=== PATIENT | male | born 1950 | race Caucasian/White ===

== ENCOUNTER → 2024-10-31 10:09 | Outpatient (REF) | payer OTHER, SELFPAY | LOC: RAD 10:09 | PROVIDERS: ATTENDING PHYSICIAN Nurse Practitioner; FAMILY PHYSICIAN Internal Medicine | DX: M25.562 Pain in left knee (principal) | CPT/HCPCS: 73564 ==

== ENCOUNTER → 2024-11-12 08:38 | Outpatient (REF) | payer OTHER, SELFPAY | LOC: RAD 08:38 | PROVIDERS: ATTENDING PHYSICIAN Nurse Practitioner | DX: M79.605 Pain in left leg (principal) | CPT/HCPCS: 93971 ==

== ENCOUNTER 2025-04-13 12:38 | Emergency (ER) | payer OTHER, SELFPAY ==
[2025-04-13] VITALS (17 sets, daily range): BP systolic 135–183; BP diastolic 86–99; BMI 21.6
--- NOTE | 2025-04-13 15:41 | ED.GENMED ---
History of Present Illness
<CLAIRE Mukherjee - Last Filed: 04/13/25 18:20>
General
Chief Complaint: Musculo-Skeletal Complaint
Source: patient
Exam Limitations: none
Time Seen by Provider: 04/13/25 14:43
Nursing documentation reviewed up to this point in time: agreed with
History of Present Illness
History of Present Illness:
Patient is a 74-year-old male who presents to the ER for evaluation of left shoulder injury. Patient reports last night he tripped and fell hitting his left shoulder. He denies hitting his head at the time. Is on blood thinners. He went to
urgent care today was diagnosed with a fracture dislocation. Patient lanes of left shoulder pain no other injuries. He denies any numbness tingling/ to distal extremity.
Pt is left hand dominant.
Past History
<CLAIRE Mukherjee - Last Filed: 04/13/25 18:20>
Past History
ED Past Medical History: None
ED Past Surgical History: Orthopedic and Tonsilectomy
Social History
Tobacco: Non-smoker
Alcohol: None
Drug: None
Personal:
Living: with family
Review of Systems
<CLAIRE Mukherjee - Last Filed: 04/13/25 18:20>
Review of Systems
Allergies reviewed?: Yes
All Other Systems: ROS reviewed and negative except as documented in HPI and ROS
Phy Exam
<CLAIRE Mukherjee - Last Filed: 04/13/25 18:20>
General Physical Exam
General Presentation: no apparent distress
General age: appears stated age
General Skin: warm and dry
General Habitus: normal
General Mental: alert
General Hydration: appears well hydrated
Neurological Exam
Neurological Exam: alert and oriented x3
Musculoskeletal Exam
Musculoskeletal Exam: other (+ deformity to left proximal arm + strong distal pulses and intact sensation no abrasions/lacerations )
Skin Exam
Skin Exam: normal color and warm/dry
Psychiatric Exam
Psychiatric Exam: normal mood/affect
Course
<BERRY MukherjeeNP - Last Filed: 04/13/25 18:20>
Orders/Labs/Results
Orders:
Orders
04/13/25 15:44
Cardiac Monitoring- Treatment ONCE
IV Insert/Care/Rem.- Treatment PRN
04/13/25 15:53
ASA Classification Routine
Propofol [Diprivan] 80 mg IV NOW STA
04/13/25 16:47
CR Shoulder - Left Min 2 View* Stat
Reason For Exam: post reduction
Vital Signs
Initial and Last Documented VS:
Initial Vital Signs
Temp Pulse Resp BP Pulse Ox
98.5 F 87 16 173/90 96
04/13/25 12:45 04/13/25 12:45 04/13/25 12:45 04/13/25 12:45 04/13/25 12:45
Last Documented Vital Signs
Temp Pulse Resp BP Pulse Ox
98.0 F 77 18 164/95 92
04/13/25 17:14 04/13/25 17:30 04/13/25 17:29 04/13/25 17:29 04/13/25 17:30
Drying Machine Tender consulted with Physician
Drying Machine Tender consulted with physician?: Yes (Jaden )
<Jesus Manuel Stanley, - Last Filed: 04/13/25 16:51>
Orders/Labs/Results
Orders:
Orders
04/13/25 15:44
Cardiac Monitoring- Treatment ONCE
IV Insert/Care/Rem.- Treatment PRN
04/13/25 15:53
ASA Classification Routine
Propofol [Diprivan] 80 mg IV NOW STA
04/13/25 16:47
CR Shoulder - Left Min 2 View* Stat
Reason For Exam: post reduction
Vital Signs
Initial and Last Documented VS:
Initial Vital Signs
Temp Pulse Resp BP Pulse Ox
98.5 F 87 16 173/90 96
04/13/25 12:45 04/13/25 12:45 04/13/25 12:45 04/13/25 12:45 04/13/25 12:45
Last Documented Vital Signs
Temp Pulse Resp BP Pulse Ox
98.0 F 77 18 164/95 92
04/13/25 17:14 04/13/25 17:30 04/13/25 17:29 04/13/25 17:29 04/13/25 17:30
Procedures
<CLAIRE Mukherjee - Last Filed: 04/13/25 18:20>
Moderate Sedation
Time drug administered: 16:44
Moderate Sedation Procedure End Time: 17:00
<Jesus Manuel Stanley DO - Last Filed: 04/13/25 16:51>
Moderate Sedation
ASA Risk Score: Class I
Chart and allergies reviewed: Yes
Consent for anesthesia obtained: Yes
Time out completed (validating right patient & procedure): Yes
History of difficult intubation: No
Airway free of obstruction: Yes
Patient has a gag reflex: Yes
Patient is able to open mouth: Yes
Patient has no dentures: Yes
Patient has no loose teeth: Yes
Medication administered by Provider during Moderate Sedation: IV Propofol (mg)
Total dose administered: 80
Joint/Fracture Reduction
Left Shoulder:
Indication for procedure:: left shoulder fracture dislocation
Procedure completed by: Otis
Consent form signed: Yes
Joint reduced: with anesthesia sedation
Anesthesia/sedation: Moderate sedation
Injury was: closed
Further treatement: needs re-check only
Post reduction exam: stable
Capillary Refill: normal
Normal distal neurovascular exam?: Yes
Peripheral Pulses: radial (left): 4+
<CLAIRE Mukherjee - Last Filed: 04/13/25 18:20>
MDM/Problems Addressed
Differential Diagnosis Includes:
Not limited to fracture dislocation
MDM/Problems Addressed:
Patient is a 74-year-old male with fracture dislocation left shoulder. He did this last night. He denies hitting his head no other injuries. He was sent by urgent care. He presents awake alert , in no acute distress ;strong distal pulses
moderate sedation was performed with the ED physician and reduction was successfully done. Patient was monitored here and remained awake alert no acute distress. He feels that his pain will be managed with ibuprofen and Tylenol and is comfortable.
Will DC with outpatient Ortho follow-up
<CLAIRE Mukherjee - Last Filed: 04/13/25 18:20>
*Radiology
Radiology exam reviewed: radiology read reviewed
*Pulse Oximetry
SaO2: 96
Patient hypoxic: no
*Critical Care Note
Total Time (30-74mins, 75-104mins- exclusive of procedures): Not Applicable
ED Attending Note
<CLAIRE Mukherjee - Last Filed: 04/13/25 18:20>
-
Portions of this chart may have been created with voice recognition software.� Occasional wrong word or��sound alike� substitutions may have occurred due to the inherent limitations of voice recognition software.
<Jesus Manuel Stanley DO - Last Filed: 04/13/25 16:51>
ED Attending Note
Patient seen and examined by attending physician: Yes
ED Attending Note:
I have reviewed and agree with history and treatment plan by Lisette Santiago. My exam revealed glenohumeral step-off anterior dislocation left shoulder neurologically and vascularly intact. Patient tolerated sedation and shoulder reduction well.
Will discharge and follow-up with orthopedics.
Discharge Plan
Departure
Patient Disposition: Home (Routine Discharge)
Date of Disposition: 04/13/25
Time of Disposition: 18:06
Patient with high blood pressure during this ER visit?: Yes
Condition: Fair
Covid-19: Not Applicable
Discharge Problem:
Closed fracture of shoulder, Dislocation of shoulder
Instructions: Shoulder Dislocation (DC), How to Use a Shoulder Sling, Shoulder or upper arm fracture, MODERATE SEDATION ADULT
Referrals:
Marco Cardenas MD [Active, Orthopedics]
Elaine Mata MD [Family Provider, Internal Medicine]
Activity Restrictions/Additional Instructions:
As discussed wear sling for support. You may ice the affected area for the next 24 hours 20 minutes at a time several times a day. Call orthopedics tomorrow to make an appointment as soon as possible.
You may take ibuprofen and alternate with Tylenol for pain. Return if any worsening of symptoms.
Interventions
Interventions:
*Risk Screen - Suicide Last Done: 04/13/25 16:30
*General Assessment Last Done: 04/13/25 16:30
*Neglect/Abuse Screening Last Done: 04/13/25 16:30
*ED- Fall Risk Assessment Last Done: 04/13/25 16:30
*ED COVID-19 Vaccine History Last Done: 04/13/25 16:30
ED-Musculoskeletal Assessment Last Done: 04/13/25 14:41
Discharge Date and Time
Print Language: VIETNAMESE
--- NOTE | 2025-04-13 16:00 | EDRN ---
Ladonna Santiago NP in room w/ pt.
--- NOTE | 2025-04-13 16:16 | EDRN ---
in room w/ pt.
[2025-04-13] MEDS: DIPRIVAN 80 MG IV (16:44)
--- NOTE | 2025-04-13 18:32 | EDRN ---
Pt is awaiting discharge transport by [facility] to take him home then he will be with sanna Paz (23 y.o.) at his home.
== END 2025-04-13 18:46 | disposition home or self-care (01) ==
LOC: EMR 12:38
PROVIDERS: EMERGENCY PHYSICIAN Emergency Medicine; FAMILY PHYSICIAN Internal Medicine
DX: S43.005A Unspecified dislocation of left shoulder joint, initial encounter (principal); W01.0XXA Fall on same level from slipping, tripping and stumbling without subsequent striking against object, initial encounter; Z79.01 Long term (current) use of anticoagulants
CPT/HCPCS: 99283; 23650; 96374; 73030

== ENCOUNTER → 2025-04-28 15:47 | Outpatient (REF) | payer OTHER, SELFPAY ==
--- NOTE | 2025-05-11 15:20 | OID.L.PAT ---
Pulmonary Nodule Pat Letter
- -
05/11/25
JAMILA STEPHENS
[address]
[place], [place]
Carmine MARINO,
A pulmonary nodule was seen on an imaging study done by [facility]. This was reviewed by the [facility] Pulmonary Nodule Advisory Board and the following recommendation was made:
Recommendation: Follow up CT Chest - now
If you have any questions, please do not hesitate to contact your primary care physician. If you are in need of a Physician, you can go to [email or web address] and click on 'Find a Provider'. Type 'Family Medicine' in the search.
Oncology Nurse Navigator
[facility]
[phone]
--- NOTE | 2025-05-11 15:22 | OID.L.REC ---
Pulmonary Nodule Follow Up
- Recommendation
05/11/25
Pulmonary Nodule Review Recommendations
Your patient, JAMILA STEPHENS, had a pulmonary nodule seen on an imaging study done on 04/28/2025 in the [facility] Radiology Department.
This was reviewed by the [facility] Pulmonary Nodule Advisory Board and the following recommendation was made:
Recommendation: Follow up CT Chest - now
If you have any questions, please do not hesitate to contact us.
Sincerely,
Oncology Nurse Navigator
[facility]
[phone]
== END ==
LOC: RAD 15:47
PROVIDERS: ATTENDING PHYSICIAN Physician Assistant Surgical; FAMILY PHYSICIAN Internal Medicine
DX: S42.292A Other displaced fracture of upper end of left humerus, initial encounter for closed fracture (principal); M25.512 Pain in left shoulder
CPT/HCPCS: 73200

== ENCOUNTER 2025-05-01 06:09 | Day surgery (SDC) | payer OTHER, SELFPAY ==
[2025-04-28 09:30] LABS: Hematocrit 37.3 % (39.0-52.0); Hemoglobin 12.5 g/dL (13.0-18.0); Mean Corp Hgb Conc. 33.5 g/dL (33.0-37.0); Mean Corpuscular Volume 97.4 fL (80.0-94.0); Nucleated Red Blood Cells % 0 % (-); Platelet Count 336 10^3/uL (130-400); Red Cell Dist. Width 13.7 % (11.5-14.5)
[2025-04-28 10:27] LABS: Blood Urea Nitrogen 8 mg/dl (9-20); Calcium 8.7 mg/dl (8.4-10.2); Carbon Dioxide 26 mmol/L (22-30); Chloride 102 mmol/L (98-107); Glucose 93 mg/dl (70-99); Potassium 4.1 mmol/L (3.5-5.1); Sodium 134 mmol/L (135-145); eGFR > 60.00
[2025-05-01] VITALS (9 sets, daily range): BP systolic 123–149; BP diastolic 75–105; BMI 21.2
[2025-05-01] MEDS: NORMOSOL-R/PLASMALYTE-A 1000 IV (08:01)
[2025-05-01] MEDS: TYLENOL 1000 MG PO (08:03)
[2025-05-01] MEDS: CELEBREX 200 MG PO (08:03)
== END 2025-05-01 15:00 | disposition home or self-care (01) ==
LOC: SDS 06:09
PROVIDERS: ATTENDING PHYSICIAN Specialist; FAMILY PHYSICIAN Internal Medicine
DX: S42.292A Other displaced fracture of upper end of left humerus, initial encounter for closed fracture (principal); X58.XXXA Exposure to other specified factors, initial encounter
CPT/HCPCS: 23615; C1713; 36415; 73030; 76000; 80048; 85025; 93005

== ENCOUNTER 2025-06-12 06:04 | Day surgery (SDC) | payer OTHER, SELFPAY ==
[2025-06-05 11:26] LABS: Hematocrit 36.7 % (39.0-52.0); Hemoglobin 12.2 g/dL (13.0-18.0); Mean Corp Hgb Conc. 33.2 g/dL (33.0-37.0); Mean Corpuscular Volume 97.9 fL (80.0-94.0); Nucleated Red Blood Cells % 0 % (-); Platelet Count 289 10^3/uL (130-400); Red Cell Dist. Width 13.2 % (11.5-14.5)
[2025-06-05 11:44] LABS: Blood Urea Nitrogen 13 mg/dl (9-20); Calcium 8.7 mg/dl (8.4-10.2); Carbon Dioxide 27 mmol/L (22-30); Chloride 103 mmol/L (98-107); Glucose 94 mg/dl (70-99); Potassium 4.7 mmol/L (3.5-5.1); Sodium 134 mmol/L (135-145); eGFR > 60.00
[2025-06-05 13:59] VITALS: BMI 22.5
[2025-06-12] VITALS (8 sets, daily range): BP systolic 134–155; BP diastolic 73–91; BMI 22.5
[2025-06-12] MEDS: CELEBREX 200 MG PO (08:09)
[2025-06-12] MEDS: TYLENOL 1000 MG PO (08:09)
[2025-06-12] MEDS: NORMOSOL-R/PLASMALYTE-A 1000 IV (08:11)
--- NOTE | 2025-06-12 09:15 | W.DS.TRANS ---
DC Summary - Point Of Care Specialist
-
Discharge Instructions:
Sleep Apnea Risk Low
Discharge Diagnosis/Procedures L TSA 06/12/25 Dr. Cardenas
Diet As tolerated
Activity With Walker
Driving Restrictions No driving
Bathing Restrictions OK to Shower
Instructions:
Stand-Alone Forms: SDS Total Shoulder D/C Inst.
Changes to Home Medications: Yes
Discharge Medications:
DC Medications w/original date entered in [employer]
cholecalciferol (vitamin D3) 25 mcg (1,000 unit) tablet (Vitamin D3) 25 mcg PO DAILY 04/28/25
cyanocobalamin (vitamin B-12) 1,000 mcg tablet 1,000 mcg PO DAILY 04/28/25
multivitamin 1 tab PO DAILY 04/28/25
Held on 06/12/25. Instructions: Resume on 06/20/25.
Vegan Calcium 600 mg PO DAILY 06/02/25
Vegan Vitamin C 1,000 mg PO DAILY 06/02/25
acetaminophen 325 mg tablet (Tylenol) 650 mg (2 x 325 mg) PO QID #1 tab 06/12/25
aspirin 325 mg tablet 325 mg PO DAILY blood clot prevention #1 tab 06/12/25
celecoxib 200 mg capsule 200 mg PO DAILY Anti-inflammatory #14 caps 06/12/25
dexamethasone 4 mg tablet 4 mg PO BID inflammation #6 tabs 06/12/25
docusate sodium 100 mg capsule (Colace) 100 mg PO BID stool softner #1 cap 06/12/25
famotidine 20 mg tablet 20 mg PO HS GI prophylaxis #30 tabs 06/12/25
gabapentin 300 mg capsule 300 mg PO HS sleep/pain #10 caps 06/12/25
magnesium hydroxide 400 mg/5 mL oral suspension (Milk of Magnesia) 30 ml PO HS PRN constipation #1 mL 06/12/25
ondansetron 4 mg disintegrating tablet 4 mg PO Q6H PRN n/v #20 tabs 06/12/25
oxycodone 5 mg tablet 5 mg PO Q6H PRN 1 tab moderate pain, 2 tabs severe pain #30 tabs 06/12/25
sennosides 8.6 mg tablet (Senokot) 17.2 mg (2 x 8.6 mg) PO BID laxative #2 tabs 06/12/25
Home Medication Changes
aspirin 325 mg tablet 325 mg PO DAILY blood clot prevention #1 tab 06/12/25
celecoxib 200 mg capsule 200 mg PO DAILY Anti-inflammatory #14 caps 06/12/25
dexamethasone 4 mg tablet 4 mg PO BID inflammation #6 tabs 06/12/25
docusate sodium 100 mg capsule (Colace) 100 mg PO BID stool softner #1 cap 06/12/25
famotidine 20 mg tablet 20 mg PO HS GI prophylaxis #30 tabs 06/12/25
gabapentin 300 mg capsule 300 mg PO HS sleep/pain #10 caps 06/12/25
magnesium hydroxide 400 mg/5 mL oral suspension (Milk of Magnesia) 30 ml PO HS PRN constipation #1 mL 06/12/25
ondansetron 4 mg disintegrating tablet 4 mg PO Q6H PRN n/v #20 tabs 06/12/25
oxycodone 5 mg tablet 5 mg PO Q6H PRN 1 tab moderate pain, 2 tabs severe pain #30 tabs 06/12/25
sennosides 8.6 mg tablet (Senokot) 17.2 mg (2 x 8.6 mg) PO BID laxative #2 tabs 06/12/25
Pending Results: No
== END 2025-06-12 13:15 | disposition home or self-care (01) ==
LOC: SDS 06:04
PROVIDERS: ATTENDING PHYSICIAN Specialist; FAMILY PHYSICIAN Internal Medicine
DX: T85.618A Breakdown (mechanical) of other specified internal prosthetic devices, implants and grafts, initial encounter (principal); Y83.1 Surgical operation with implant of artificial internal device as the cause of abnormal reaction of the patient, or of later complication, without mention of misadventure at the time of the procedure; S42.252A Displaced fracture of greater tuberosity of left humerus, initial encounter for closed fracture; X58.XXXA Exposure to other specified factors, initial encounter
CPT/HCPCS: 20680; 36415; 73030; 76000; 80048; 85025; 93005

== ENCOUNTER 2025-07-21 13:20 | Outpatient (RCR) | payer OTHER, SELFPAY | END 2025-07-21 23:59 | disposition home or self-care (01) | LOC: RPT 13:20 | PROVIDERS: ATTENDING PHYSICIAN Physician Assistant Surgical; FAMILY PHYSICIAN Internal Medicine | DX: Z98.890 Other specified postprocedural states (principal); Z47.89 Encounter for other orthopedic aftercare; M25.512 Pain in left shoulder; Z73.6 Limitation of activities due to disability; S46.012D Strain of muscle(s) and tendon(s) of the rotator cuff of left shoulder, subsequent encounter; M62.81 Muscle weakness (generalized); W19.XXXD Unspecified fall, subsequent encounter | CPT/HCPCS: 97010; 97110; 97140; 97162 ==

== ENCOUNTER 2025-08-06 08:51 | Outpatient (RCR) | payer OTHER, SELFPAY | END 2025-08-06 23:59 | disposition home or self-care (01) | LOC: RPT 08:51 | PROVIDERS: ATTENDING PHYSICIAN Physician Assistant Surgical; FAMILY PHYSICIAN Internal Medicine | DX: Z47.89 Encounter for other orthopedic aftercare (principal); M25.512 Pain in left shoulder; Z73.6 Limitation of activities due to disability; M62.81 Muscle weakness (generalized); S46.012D Strain of muscle(s) and tendon(s) of the rotator cuff of left shoulder, subsequent encounter; W19.XXXD Unspecified fall, subsequent encounter; Z98.890 Other specified postprocedural states | CPT/HCPCS: 97010; 97110 ==

== ENCOUNTER → 2025-08-28 13:18 | Outpatient (REF) | payer OTHER, SELFPAY | LOC: HWRAD 13:18 | PROVIDERS: ATTENDING PHYSICIAN Physician Assistant Surgical; FAMILY PHYSICIAN Internal Medicine | DX: M75.102 Unspecified rotator cuff tear or rupture of left shoulder, not specified as traumatic (principal) | CPT/HCPCS: 73200 ==

== ENCOUNTER → 2025-09-03 11:02 | Outpatient (REF) | payer OTHER, SELFPAY ==
[2025-09-03 11:51] LABS: Hematocrit 37.3 % (39.0-52.0); Hemoglobin 12.4 g/dL (13.0-18.0); Mean Corp Hgb Conc. 33.2 g/dL (33.0-37.0); Mean Corpuscular Volume 95.2 fL (80.0-94.0); Nucleated Red Blood Cells % 0 % (-); Platelet Count 286 10^3/uL (130-400); Red Cell Dist. Width 15.9 % (11.5-14.5)
[2025-09-03 12:21] LABS: Blood Urea Nitrogen 12 mg/dl (9-20); Calcium 8.5 mg/dl (8.4-10.2); Carbon Dioxide 31 mmol/L (22-30); Chloride 99 mmol/L (98-107); Glucose 90 mg/dl (70-99); Sodium 133 mmol/L (135-145); eGFR > 60.00
[2025-09-03 13:23] LABS: Potassium 4.8 mmol/L (3.5-5.1)
== END ==
LOC: RCS 11:02
PROVIDERS: ATTENDING PHYSICIAN Specialist; FAMILY PHYSICIAN Internal Medicine
DX: Z01.818 Encounter for other preprocedural examination (principal)
CPT/HCPCS: 36415; 80048; 85025; 93005